=== PATIENT | female | born 1975 | race Caucasian/White ===

== ENCOUNTER → 2016-10-25 | Outpatient (CLI) | payer OTHER | LOC: FIMAGING 11:28 | PROVIDERS: ATTEND Obstetrics & Gynecology | DX: Z12.31 Encounter for screening mammogram for malignant neoplasm of breast (principal) | CPT/HCPCS: G0202 ==

== ENCOUNTER → 2016-11-08 | Outpatient (CLI) | payer OTHER | LOC: FIMAGING 11:39 | PROVIDERS: ATTEND Obstetrics & Gynecology | DX: R92.8 Other abnormal and inconclusive findings on diagnostic imaging of breast (principal) | CPT/HCPCS: G0206 ==

== ENCOUNTER 2016-11-11 07:55 | Emergency (ER) | payer OTHER ==
[2016-11-11 08:07] VITALS: RESP 18; O2SAT 98
--- NOTE | 2016-11-11 08:28 | EDPHY ---
H & P Time Seen by Provider: 11/11/16 08:14 HPI/ROS: CHIEF COMPLAINT: right upper quadrant pain with nausea HISTORY OF PRESENT ILLNESS: This is a 41-year-old female presenting to the emergency department complaining of right upper quadrant pain with nausea for 3 weeks. Patient states symptoms have increased over the past week with nausea and increased pain after eating. Patient states she was seen by her primary care yesterday, primary care was concerned of possible gallstones, patient states has an appointment for ultrasound next week but has had increased pain over the past couple of days. Has been able to tolerate certain foods, but but has reported a decrease in p.o. intake. Denies any history of high blood pressure diabetes kidney disease or liver problems REVIEW OF SYSTEMS: Constitutional: No fever, no chills. Decreased p.o. intake Eyes: No discharge. No blurred vision ENT: No sore throat. Cardiovascular: No chest pain, no palpitations. Respiratory: No cough, no shortness of breath. Gastrointestinal: Right upper quadrant abdominal pain, nausea no vomiting Genitourinary: No hematuria. Musculoskeletal: No back pain. Skin: No rashes. Neurological: No headache. Smoking Status: Never smoked Physical Exam: General Appearance: Alert, no distress. HEENT: Normocephalic atraumatic. Pupils equal and round no pallor or injection. Mucous membranes moist. Respiratory: There are no retractions, lungs are clear to auscultation. Cardiovascular: Regular rate and rhythm. Gastrointestinal: Abdomen is soft. Right upper quadrant tenderness on palpation nondistended, no masses, bowel sounds normal. Neurological: No focal deficits. Answering questions appropriately Skin: Warm and dry, no rashes. Musculoskeletal: Neck is supple nontender. Extremities: symmetrical, full range of motion. Psychiatric: Patient is oriented X 3, acting appropriately Constitutional: Initial Vital Signs Temperature (C) 36.7 C 11/11/16 08:00 Heart Rate 82 11/11/16 08:00 Respiratory Rate 18 11/11/16 08:00 Blood Pressure 108/72 11/11/16 08:00 O2 Sat (%) 98 11/11/16 08:00 O2 Delivery Mode Room Air Allergies/Adverse Reactions: Penicillins Allergy (Intermediate, Verified 11/11/16 08:09) Hives clindamycin Allergy (Mild, Verified 11/11/16 08:08) blisters cortisone Allergy (Mild, Verified 11/11/16 08:09) Rash latex Allergy (Verified 11/11/16 08:09) emycin Allergy (Mild, Uncoded 11/11/16 08:08) blisters peanuts Allergy (Uncoded 11/11/16 08:09) Home Medications: Medication Instructions Recorded Ondansetron Odt [Zofran Odt 4 mg 4 mg PO Q4 #10 tab 11/11/16 (*)] Medical Decision Making - Diagnostics Imaging Results: Imaging Impressions Abdomen Ultrasound 11/11/16 08:24 Impression: Negative sonogram of the right upper quadrant of the abdomen. Results called to Joan Maravilla NP, at 9:40 AM. ED Course/Re-evaluation: Discussed ED plan of care: CBC, CMP, lipase, beta HCG, ultrasound gallbladder. Patient declined any pain medicine at this time or nausea medicine 0940: Spoke with Dr. Song ultrasound negative for gallstones, obstruction shows some enlargement of gallbladder. 0945: Discussed all results with patient, she will follow up with her PCP next week. Discharge home---> stable, discussed all discharge instructions with patient Differential Diagnosis: Other differential diagnosis considered but not limited to the cholelithiasis, common bile duct obstruction, and pancreatitis - Data Points Laboratory Results: Laboratory Results 11/11/16 08:33 11/11/16 08:33 11/11/16 11/11/16 11/11/16 08:33 08:33 08:33 WBC 6.00 10^3/uL 10^3/uL (3.80-9.50) RBC 4.58 10^6/uL 10^6/uL (4.18-5.33) Hgb 14.9 g/dL g/dL (12.6-16.3) Hct 43.7 % % (38.0-47.0) MCV 95.4 fL fL (81.5-99.8) MCH 32.5 pg pg (27.9-34.1) MCHC 34.1 g/dL g/dL (32.4-36.7) RDW 12.3 % % (11.5-15.2) Plt Count 207 10^3/uL 10^3/uL (150-400) MPV 10.3 fL fL (8.7-11.7) Neut % (Auto) 73.5 % % (39.3-74.2) Lymph % (Auto) 17.5 % % (15.0-45.0) Stanton % (Auto) 6.2 % % (4.5-13.0) Eos % (Auto) 1.8 % % (0.6-7.6) Baso % (Auto) 0.7 % % (0.3-1.7) Nucleat RBC Rel Count 0.0 % % (0.0-0.2) Absolute Neuts (auto) 4.41 10^3/uL 10^3/uL (1.70-6.50) Absolute Lymphs (auto) 1.05 10^3/uL 10^3/uL (1.00-3.00) Absolute Monos (auto) 0.37 10^3/uL 10^3/uL (0.30-0.80) Absolute Eos (auto) 0.11 10^3/uL 10^3/uL (0.03-0.40) Absolute Basos (auto) 0.04 10^3/uL 10^3/uL (0.02-0.10) Absolute Nucleated RBC 0.00 10^3/uL 10^3/uL (0-0.01) Immature Gran % 0.3 % % (0.0-1.1) Immature Gran # 0.02 10^3/uL 10^3/uL (0.00-0.10) Sodium 144 mEq/L mEq/L (134-144) Potassium 4.0 mEq/L mEq/L (3.5-5.2) Chloride 111 mEq/L H mEq/L (97-110) Carbon Dioxide 21 mEq/l L mEq/l (22-31) Anion Gap 12 mEq/L mEq/L (8-16) BUN 12 mg/dL mg/dL (7-23) Creatinine 0.9 mg/dL mg/dL (0.6-1.0) Estimated GFR > 60 Glucose 80 mg/dL mg/dL (70-100) Calcium 9.8 mg/dL mg/dL (8.5-10.4) Total Bilirubin 1.1 mg/dL mg/dL (0.1-1.4) AST 22 IU/L IU/L (14-46) ALT 31 IU/L IU/L (9-52) Alkaline Phosphatase 59 IU/L IU/L (38-126) Total Protein 7.6 g/dL g/dL (6.3-8.2) Albumin 4.6 g/dL g/dL (3.5-5.0) Lipase 91.0 IU/L IU/L (23-300) Beta HCG, Qual NEGATIVE Departure - Departure Disposition: Home, Routine, Self-Care Clinical Impression: Acute cholecystitis Condition: Good Instructions: Cholecystitis (ED) Additional Instructions: 1. Ultrasound was negative for any gallstones and no obstruction of the common bile duct. 2. He can take [id number] ibuprofen as needed 600 mg every 6-8 hours, this can help with pain 3. Follow up with your primary care provider next week 4. I have also is given you a prescription nausea medicine use this as needed Referrals: Nadira Anthony MD [Primary Care Provider] - As per Instructions Prescriptions: Ondansetron Odt [Zofran Odt 4 mg (*)] 4 mg PO Q4 #10 tab
[2016-11-11 08:48] LABS: % IMMATURE GRANULYOCYTES 0.3 % (0.0-1.1); ABSOLUTE IMMATURE GRANULOCYTES 0.02 10^3/uL (0.00-0.10); ADD DIFF? NO; ADD MORPH? NO; ADD SCAN? NO; ATYPICAL LYMPHOCYTE FLAG 10 (0-99); FRAGMENT RBC FLAG 0 (0-99); HEMATOCRIT 43.7 % (38.0-47.0); HEMOGLOBIN 14.9 g/dL (12.6-16.3); LEFT SHIFT FLG 0 (0-99); LIPEMIA HEMOLYSIS FLAG 90 (0-99); MEAN CELL HEMOGLOBIN 32.5 pg (27.9-34.1); MEAN CELL HEMOGLOBIN CONCENTR. 34.1 g/dL (32.4-36.7); MEAN CELL VOLUME 95.4 fL (81.5-99.8); MEAN PLATELET VOLUME 10.3 fL (8.7-11.7); PLATELET CLUMPS FLAG 20 (0-99); PLATELET COUNT 207 10^3/uL (150-400); RED BLOOD CELL COUNT 4.58 10^6/uL (4.18-5.33); RED CELL DISTRIBUTION WIDTH 12.3 % (11.5-15.2)
[2016-11-11 09:13] LABS: ALANINE AMINOTRANSFERASE 31 IU/L (9-52); ALBUMIN 4.6 g/dL (3.5-5.0); ALKALINE PHOSPHATASE 59 IU/L (38-126); ANION GAP 12 mEq/L (8-16); ASPARTATE AMINOTRANSFERASE 22 IU/L (14-46); BILIRUBIN,TOTAL 1.1 mg/dL (0.1-1.4); CALCIUM 9.8 mg/dL (8.5-10.4); CARBON DIOXIDE 21 mEq/l (22-31); CHLORIDE 111 mEq/L (97-110); CREATININE 0.9 mg/dL (0.6-1.0); GLOMERULAR FILTRATION RATE > 60; GLUCOSE 80 mg/dL (70-100); SODIUM 144 mEq/L (134-144); TOTAL PROTEIN 7.6 g/dL (6.3-8.2)
[2016-11-11 10:18] VITALS: PULSE 81; TEMP 97.9
[2016-11-11 10:19] VITALS: BP 110/78
== END 2016-11-11 10:19 | disposition home or self-care (01) ==
DX: K81.9 Cholecystitis, unspecified (principal); Z91.010 Allergy to peanuts; Z91.040 Latex allergy status

== ENCOUNTER → 2018-09-04 | Outpatient (CLI) | payer OTHER | LOC: FIMAGING 10:08 | PROVIDERS: ATTEND Family Medicine | DX: R10.31 Right lower quadrant pain (principal) ==